=== PATIENT | male | born 1950 | race Caucasian/White ===

== ENCOUNTER 2019-09-19 09:30 | Day surgery (SDC) | payer MEDICARE, OTHER, SELFPAY ==
--- NOTE | 2019-09-19 | FOR_PTH ---
PATIENT: JOSH OLVERA LOC: [facility] [place] U#:[id number] AGE/SX: 69/M ROOM: RE09/19/[address]: Dr. Evangelista Lawler MD : [id number] BED: DIS: 09/19/2019 SPEC #: [id number] RECD: 09/19/19 14:36 STATUS: TATIANA NITA #: [id number] BRITTNEY: 09/19/19 00:[address]: Evangelista Lawler DEPT: SURGICAL PATHOLOGY RECD BY: Bobby Marie ENTERED: 09/19/19 14:37 SP TYPE: FORESKIN OTHR DR: Dr. Lacho Vickers MD Tissues: A - Skin of foreskin, NOS B - Penis, NOS Procedures: Surgery Specimen Level IV HEADER OPERATION: Circumcision, cysto, penile biopsy PRE-OP DIAGNOSIS: Phimosis TISSUE SUBMITTED: A - Foreskin, B - Penile biopsy MICROSCOPIC DIAGNOSIS A. 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 Negative for malignancy. B. Penile biopsy: Fragments of dense fibrous tissue. Negative for malignancy. See comment. SOPHIE:qamar 09/22/19 COMMENT B. Focal area also show unremarkable squamous epithelium. Correlation with clinical findings and appropriate follow up are necessary. Case has been reviewed in consultation with Dr. Hernández who concurs with the above diagnosis. IDC:AM MICROSCOPIC DESCRIPTION Slides are reviewed. GROSS DESCRIPTION A - Received in fixative is one container labeled with the patient's name and designated foreskin. The specimen consists of a wrinkled piece of zuleta-white to light brown skin measuring 7.5 x 2 cm and up to 0.5 cm in thickness. A focal area of ulceration and induration is noted. No mass lesion is identified. Fiberline Supervisor sections are submitted in one cassette. B - Received in fixative is one container labeled with the patient's name and designated penile biopsy. The specimen consists of multiple elongated fragments of zuleta soft tissue measuring 0.5 to 2 cm in length and 0.1 cm in diameter. The entire specimen is submitted in one cassette. / SOPHIE:qamar 09/19/19 TC:3 CPT: 56907 x2
[2019-09-19 09:59] VITALS: BP 136/72; PULSE 62; RESP 15; TEMP 36.9; O2SAT 97; BMI 33.6
[2019-09-19] MEDS: Lactated Ringers 1,000 ML 100 ML IV (10:16)
[2019-09-19 10:31] LABS: Bedside Glucose 132 mg/dL (70-110)
[2019-09-19] MEDS: Cefazolin 2 GM in 0.9% Normal Saline 100 ML IV (12:15)
--- NOTE | 2019-09-19 12:19 | PCM.DC.URO ---
Discharge Diet: Light diet - advance as tolerated Discharge Activity: Return to Normal Activity Instructions: Care After Circumcision Allergies/Adverse Reactions: Allergies lisinopril Allergy (Verified 09/19/19 09:52) paralyzed throat morphine Adverse Reaction (Verified 09/19/19 09:52) nightmares simvastatin Adverse Reaction (Verified 09/19/19 09:52) Pain in joints Medications to take at Discharge Acetaminophen [Tylenol Arthritis] 650 mg PO 4X/DAY 09/12/19 Albuterol IH (ProAir) [Proair Hfa (SP)Vent Pts] 1 - 2 puff INHALATION Q6H PRN PRN 09/12/19 Amlodipine [Norvasc] 5 mg PO QHS 09/12/19 Aspirin [Aspir 81] 81 mg PO DAILY 09/12/19 Atorvastatin Calcium [Lipitor] 40 mg PO QHS 09/12/19 Bupropion HCl [Bupropion HCl ER] 200 mg PO DAILY 09/12/19 Duloxetine Hcl [Cymbalta] 30 mg PO QHS 09/12/19 Eplerenone [Inspra] 25 mg PO DAILY 09/12/19 Ergocalciferol [Vitamin D] 50,000 unit PO Q7D 09/12/19 Finasteride [Proscar] 5 mg PO DAILY 09/12/19 Fluticasone 0.05% [Flonase Nasal [place]] 1 spray NASAL DAILY PRN 09/12/19 Magnesium Oxide [Magnesium] 420 mg PO DAILY 09/12/19 Metoprolol Tartrate [Lopressor (Beta Adrianna)] 50 mg PO BID 09/12/19 Omeprazole 40 mg PO PRN PRN 09/12/19 Pregabalin [Lyrica] 150 mg PO BID 09/12/19 Tamsulosin HCl [Flomax] 0.4 mg PO DAILY 09/12/19 busPIRone [Buspar] 30 mg PO TID 09/12/19 traMADol [Ultram (G)] 50 mg PO 4X/DAY 09/12/19 Cephalexin [Keflex] 500 mg PO Q8 #10 cap 09/19/19 Hydrocodone/Acetaminophen [[place] 5-325 Tablet] 1 each PO Q4H PRN PRN 5 Days #14 tablet 09/19/19 The following prescriptions were given: Cephalexin [Keflex] 500 mg PO Q8 #10 cap Transmission Status: Pending to [facility] Hydrocodone/Acetaminophen [[place] 5-325 Tablet] 1 each PO Q4H PRN PRN 5 Days #14 tablet PRN Reason: Pain Score 1-06/26 Transmission Status: Sent to [facility] Primary Care Physician: Lacho Vickers MD [Primary Care Provider] - Test Results: Test results from this visit will be discussed in further detail at your follow-up appointment, if applicable. Please Follow Up With: Evangelista Lawler MD When: in 2 weeks, please call to make an appointment.
[2019-09-19] MEDS: Bupivacaine Mpf 0.5% 30 ML VIAL (12:30)
--- NOTE | 2019-09-19 13:01 | PCM.OPRPT ---
Report of Operation Date of Procedure: 09/19/19 Pre-Operative Diagnosis: Difficulty with urination, chronically scarred down foreskin, lesion on the tip of the penis. 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 Surgery/Procedure Performed:: Circumcision, dilation of meatus and meatal stricture, punch biopsy of penile lesion. Description of Surgical Findings:: 69-year-old male has been having difficulty with urination was found to have a very inflamed foreskin recommended we proceed with a circumcision also has an area of firmness on the glans of the penis and I do a biopsy today and also reports having difficulty with urination regard to a cystoscopy. 69-year-old male was taken back to the operating room at the smooth induction of general anesthesia he was placed prone on the table penis and testicles are shaved prepped and draped in usual sterile fashion,I then injected lidocaine circumferentially into the penis for a block, we then marked out the normal skin on the shaft all the way around the inflamed whitish firm foreskin tissue that looked like chronic inflammation. I used electric Bovie cautery to dissect circumferentially all the way around and then I bivalved the foreskin and then dissected sub-coronally all the way around and then excise the firm hard chronically inflamed foreskin off the penis obtain hemostasis we then completed the circumcision by re-anastomosing the shaft skin to the subcoronal skin in an interrupted fashion with a running stitches between that using 3-0 chromic. I then used an 18-gauge punch biopsy needle and perform 3 punch biopsies on the glans penis there was a hard firm lesion on the patient's right side of the glans lesion this was biopsied good specimen was obtained and sent off as a biopsy of the glans. I then performed a cystoscopy using a an 18 [place] flexible catheter found that he had a meatal stricture in the fossa navicularis the entire length urethra is normal bulbar urethra normal prostate had bilateral hypertrophy verumontanum was normal, inside the bladder left the right ureter orifice was normal trigone was normal the bladder was smooth no tumors or stones seen within the bladder and then removed the cystoscope then perform dilation of the meatal stricture starting at [address] to 30 Salv[place] and then was able to pass it easy 26 [place] through the meatus. At that point the catheter was used to drain the bladder dressings were placed on the circumcision patient anesthetic is currently being reversed plan to see him back in a few weeks to review the biopsy results and postop check on the circumcision. Type of Anesthesia:: General Drains: none - Admit VTE Documentation VTE Present on Admission: No VTE Mechan Device Prophylaxis: SCD's
[2019-09-19 13:15] VITALS: BP 136/72; BP 139/82; PULSE 70; RESP 16; TEMP 36.2; O2SAT 92
[2019-09-19 13:30] VITALS: BP 131/78; BP 136/72; PULSE 70; RESP 16; O2SAT 100
[2019-09-19 13:30] LABS: Bedside Glucose 110 mg/dL (70-110)
[2019-09-19 13:45] VITALS: BP 125/77; BP 136/72; PULSE 65; RESP 16; TEMP 36.3; O2SAT 100
[2019-09-19] MEDS: HYDROcodone Bitartrate/Apap 5/325 Tablet PO (14:03)
[2019-09-19 15:00] VITALS: BP 128/87; BP 136/72; PULSE 60; RESP 16; TEMP 36.3; O2SAT 97
--- NOTE | 2019-10-03 08:01 | PCM.HP.STD ---
History of Present Illness Date of Admission: 10/03/19 Chief Complaint: Phimosis The patient is a 69 year old male with phimosis and penile lesion presents for circumcision and biopsy. Past Medical History Allergies lisinopril Allergy (Verified 09/19/19 09:52) paralyzed throat morphine Adverse Reaction (Verified 09/19/19 09:52) nightmares simvastatin Adverse Reaction (Verified 09/19/19 09:52) Pain in joints Home Medications: Ambulatory Orders Medication Instructions Recorded Acetaminophen [Tylenol Arthritis] 650 mg PO 4X/DAY 09/12/19 Albuterol IH (ProAir) [Proair Hfa 1 - 2 puff INHALATION Q6H PRN PRN 09/12/19 (SP)Vent Pts] Amlodipine [Norvasc] 5 mg PO QHS 09/12/19 Aspirin [Aspir 81] 81 mg PO DAILY 09/12/19 Atorvastatin Calcium [Lipitor] 40 mg PO QHS 09/12/19 Bupropion HCl [Bupropion HCl ER] 200 mg PO DAILY 09/12/19 Duloxetine Hcl [Cymbalta] 30 mg PO QHS 09/12/19 Eplerenone [Inspra] 25 mg PO DAILY 09/12/19 Ergocalciferol [Vitamin D] 50,000 unit PO Q7D 09/12/19 Finasteride [Proscar] 5 mg PO DAILY 09/12/19 Fluticasone 0.05% [Flonase Nasal 1 spray NASAL DAILY PRN 09/12/19 [place]] Magnesium Oxide [Magnesium] 420 mg PO DAILY 09/12/19 Metoprolol Tartrate [Lopressor 50 mg PO BID 09/12/19 (Beta Adrianna)] Omeprazole 40 mg PO PRN PRN 09/12/19 Pregabalin [Lyrica] 150 mg PO BID 09/12/19 Tamsulosin HCl [Flomax] 0.4 mg PO DAILY 09/12/19 busPIRone [Buspar] 30 mg PO TID 09/12/19 traMADol [Ultram (G)] 50 mg PO 4X/DAY 09/12/19 Cephalexin [Keflex] 500 mg PO Q8 #10 cap 09/19/19 Smoking Status: Former smoker Tobacco Use: Non-smoker VTE Information - Inpt Only VTE Present on Admission: No - Physical Exam Vitals/I&O's: Vital Signs Temp Pulse Resp BP Pulse Ox 97.4 F L 60 16 128/87 H 97 09/19/19 15:00 09/19/19 15:00 09/19/19 15:00 09/19/19 15:00 09/19/19 15:00 Oxygen Delivery Method Room Air Weight: 111 kg Body Mass Index (BMI) 33.6 General: Alert, Oriented x3, Cooperative HEENT: Atraumatic, PERRLA, EOMI, Normocephalic Neck: Supple, No JVD, Negative Carotid Bruits Lungs: Clear to auscultation, Normal air movement Cardiovascular: Regular rate, No murmurs Abdomen: Bowel Sounds Present, Soft, Non Tender Extremities: No edema, Capillary Refill Less than 3 Seconds Skin: No rashes, No breakdown Musculoskeletal: No Tenderness to Palpation of Joints or Extremities Neurological: Cranial nerves II-XII grossly intact Psych/Mental Status: Normal Affect, Appropriate Assessment/Plan Plan to proceed with circumcision and biopsy.
== END 2019-09-19 15:11 | disposition home or self-care (01) ==
LOC: SDC 09:32 → AC 09:35
PROVIDERS: Family Provider Family Medicine; PCP Family Medicine; Referring Provider Urology; Visit Provider Urology
PROC: (CPT 54161; principal; 2019-09-19 11:50)
DX: N48.0 Leukoplakia of penis (principal); N47.1 Phimosis; L90.5 Scar conditions and fibrosis of skin; N35.919 Unspecified urethral stricture, male, unspecified site; E11.9 Type 2 diabetes mellitus without complications; F43.10 Post-traumatic stress disorder, unspecified; Z79.82 Long term (current) use of aspirin; Z79.899 Other long term (current) drug therapy; Z87.891 Personal history of nicotine dependence; Z88.8 Allergy status to other drugs, medicaments and biological substances; Z98.1 Arthrodesis status; Z86.73 Personal history of transient ischemic attack (TIA), and cerebral infarction without residual deficits; I25.2 Old myocardial infarction; I10 Essential (primary) hypertension
CPT/HCPCS: 00300; 11104; 11105; 54161; 82962; 88304; 88305; J7120; J2405